=== PATIENT | male | born 1985 | race African-American/Black ===

== ENCOUNTER 2016-08-22 12:55 | Emergency (ER) | payer OTHER ==
[~2016-08-22] VITALS: Ht 182.9 cm; Wt 79.4 kg
[~2016-08-22 12:55] MED LIST: AMOXICILLIN 50500 M1 PO; AZITHROMYCIN 2250 MG PO; COUMADIN 2.5MG2.5 M1 PO; DILAUDID 2 MG TA2 MG PO; LEVAQUIN 250 M250 MG PO; NOHOMEMEDICATIONS; NORCO 5-325 TA1 EACH PO; OXYCODONE HCL E40 MG PO; OXYCONTIN10 M1 PO; OXYCONTIN60 MG PO; PERCOCET 10-321 EACH PO; PERCOCET 5-3251 EACH PO; PERCOCET 7.5-31 EACH PO; PHENERGAN 25 MG25 M1 PO; ROXICODONE30 M1 PO; TRAZODONE HCL50 MG PO; XANAX1 MG PO
[2016-08-22 14:19] LABS: CALCIUM 8.9 mg/dL (8.5-10.1); CREATININE 0.8 mg/dL (0.7-1.3); POTASSIUM 4.5 mmol/L (3.5-5.1)
[2016-08-22 14:24] LABS: ALBUMIN 3.8 g/dL (3.4-5.0); TOTAL BILIRUBIN 0.8 mg/dL (<0.1-1.0); TOTAL PROTEIN 7.9 g/dL (6.4-8.2)
[2016-08-22 14:31] LABS: ABSOLUTE NEUTROPHILS 5.7 thou/uL (1.4-8.2); BASOPHILS 0.4 % (0.0-2.0); EOSINOPHILS 0.7 % (0.0-3.0); HEMATOCRIT 33.1 % (42.0-52.0); HEMOGLOBIN 11.5 gm/dL (14.0-18.0); LYMPHOCYTES 22.4 % (24.0-44.0); MCH 34.7 pg (26.0-34.0); MCHC 34.8 g/dL (28.0-37.0); MCV 99.8 fL (80.0-100.0); MONOCYTES 7.9 % (1.0-8.0); OBSERVED RETIC COUNT 5.72 % (0.6-2.6); PLATELET COUNT 415 thou/uL (150-400); POLYS 68.6 % (36.0-66.0); RBC 3.32 mil/uL (4.50-6.00); RDW 14.9 % (10.5-14.5); WBC 8.3 thou/uL (4.0-11.0)
[2016-08-22 14:32] LABS: MANUAL DIFF NO
[2016-08-22 14:41] LABS: INR 1.2; PROTIME 12.2 Seconds (9.3-11.4)
[2016-08-22] MEDS ORDERED: NORCO 5-325 TA1 EACH PO (15:03)
[2016-08-23] MEDS ORDERED: BENADRYL25 MG PO (19:23)
== END 2016-08-22 15:17 | disposition home or self-care (01) ==
LOC: ER 12:55
PROVIDERS: Physician Assistant
DX: D57.00 Hb-SS disease with crisis, unspecified (principal); Z86.711 Personal history of pulmonary embolism; F41.9 Anxiety disorder, unspecified; F17.210 Nicotine dependence, cigarettes, uncomplicated; F12.10 Cannabis abuse, uncomplicated

== ENCOUNTER 2016-08-23 08:36 | Inpatient (IN) | payer OTHER ==
[~2016-08-23] VITALS: Ht 182.9 cm; Wt 68.0 kg
--- NOTE | ~2016-08-23 | O ---
[facility] [place] [address] OPERATIVE REPORT Name: MELANIE STALLWROTH Room #: 417-I DIS IN M.R.#: [id number] Admission: 08/23/16 Attend Phys: Ihsan Lawton Discharge: 08/29/16 Date of : 87 Report #: [id number] THIS REPORT FOR: //name// CC: Ihsan Lemos DATE OF SERVICE: 08/27/2016 PREOPERATIVE DIAGNOSIS: Bilateral upper arm fluid collections. POSTOPERATIVE DIAGNOSIS: Bilateral upper arm abscesses. SURGEON: Tanvir Austin MD. FREIGHT BRAKEMAN: None. PROCEDURE: Incision and drainage of bilateral upper arm abscesses. ANESTHESIA: General anesthetic and local anesthesia. ESTIMATED BLOOD LOSS: 10 mL. SPECIMENS TO PATHOLOGY: Cultures including aerobic, anaerobic, AFB, and fungal from each site, five separate areas of abscess were incised and drained. Each of these were packed with 0.25% Dakin's soaked strip gauze. After hemostasis had been obtained at each site and after each site had been irrigated with copious sterile saline. DESCRIPTION OF PROCEDURE: After written and informed consent was obtained, the patient was brought to the operating room and placed in the supine position. A timeout was taken to verify the patient's identity and to plan the procedure. SCDs were in place in the lower extremities bilaterally. Preoperative antibiotics had been administered. Anesthesia was induced. LMA was placed. Bilateral upper arms were sterilely prepped and draped in the standard fashion. The right upper arm site was addressed first. This measured 5 cm x 3 cm. Local anesthetic was infiltrated in a field block pattern. Incision was made with a #10 blade and carried through the skin and subcutaneous tissue. Purulence was encountered. This was off-white in coloration. Culture was obtained and passed off. The wound was then explored digitally and with Yasmin clamp and was then irrigated with copious sterile saline and suctioned clear. Hemostasis was obtained with electrocautery and with direct pressure. The wound was then packed with 0.25% Dakin-soaked strip gauze. Right upper arm middle abscess was then addressed in the same fashion. This measured 2 cm x 2 cm. Off-white purulence was produced evacuated and cultured. The wound was irrigated out in the same fashion. Hemostasis was obtained using [facility] [address] [place] [address] OPERATIVE REPORT Name: MELANIE STALLWORTH Room #: 417-I [facility] IN ..#: [id number] Admission: 08/23/16 Attend Phys: Ihsan Lawton Discharge: 08/29/16 Date of : 87 Report #: [id number] electrocautery. Wound was similarly packed with 0.25% Dakin-soaked strip gauze. Right upper arm inferior abscess was addressed in the same fashion. This was measured at 3 cm x 3 cm, similar off-white purulence was produced evacuated and cultured. Irrigation was performed. Hemostasis was obtained with electrocautery. Wound was also packed with 0.25% Dakin-soaked strip gauze. Left upper arm superior abscess was then addressed. This measured 5 cm x 4 cm. This showed off-white purulence as well, which was evaluated and cultured. Hemostasis was obtained with electrocautery. Wound was packed with Dakin-soaked strip gauze. Left upper arm inferior abscess was addressed in the similar fashion. This measured 5 cm x 4 cm. Off-white purulence was produced, evacuated and cultured. Wound was irrigated with copious sterile saline and suctioned clear. Electrocautery was utilized for hemostasis. Wound was packed with 0.25% Dakin-soaked strip gauze. Sterile dressings were applied over each of these five sites of incision and drainage, and at this point, the case was ended. All instrumentation had been extracted and accounted for. All counts were correct per nursing report. The cultures had all been labeled appropriately, and were passed off again for aerobic, anaerobic, AFB, and fungal cultures. The patient was awakened and taken to the postoperative care unit in stable condition. <ELECTRONICALLY SIGNED> By: Tanvir Austin MD 09/06/16 1506 0924 1218 Tanvir Austin MD /nt
--- NOTE | ~2016-08-23 | 2DMMODE ---
[facility] [address] [place] [address] 2 D/M-MODE ECHOCARDIOGRAM Name: FEDERICAMELANIE Room #: 417-I ADM IN M.R.#: [id number] Admission: 08/23/16 Attend Phys: Ihsan Noland Discharge: Date of : 87 Date of Service: 08/26/16 1231 Report #: [id number] THIS REPORT FOR: //name// APPROVED REPORT Study performed: 08/26/2016 10:08:18 EXAM: Comprehensive 2D, Doppler, and color-flow Echocardiogram Patient Location: Echo lab Room #: [facility] Status: routine Other Information Study Quality: Good Indications Rule out vegetations. 2D Dimensions RVDd: 28.90 mm LVEF(%): 60.32 (>50%) IVSd: 8.89 (7-11mm) LVOT Diam: 23.45 (18-24mm) LVDd: 48.71 mm PWd: 10.75 (7-11mm) Ascending Ao: 26.10 (22-36mm) LVDs: 33.00 (25-40mm) Aortic Root: 31.63 mm Salguero's LVEF: 60.32 % Volumes Left Atrial Volume (Systole) Single Plane 4CH: 37.76 mL Single Plane 2CH: 56.43 mL LA ESV Index: 27.00 mL/m2 Aortic Valve AoV Peak Eric.: 1.26 m/s AO Peak Gr.: 6.31 mmHg LVOT Max P.99 mmHg LVOT Max V: 1.00 m/s SILVIO Vmax: 3.43 cm2 Mitral Valve E/A Ratio: 1.7 MV Decel. Time: 195.03 ms MV E Max Eric.: 0.99 m/s MV A Eric.: 0.59 m/s MV PHT: 56.56 ms IVRT: 55.36 ms [facility] [place] [address] 2 D/M-MODE ECHOCARDIOGRAM Name: MELANIE STALLWORTH EMILY Room #: 417-I [facility] IN .R.#: [id number] Admission: 08/23/16 Attend Phys: Ihsan Noland Discharge: Date of : 87 Date of Service: 08/26/16 1231 Report #: [id number] Pulmonary Valve PV Peak Eric.: 1.29 m/s PV Peak Gr.: 6.70 mmHg Pulmonary Vein P Vein S: 0.46 m/s P Vein D: 0.63 m/s P Vein S/D Ratio: 0.73 Tricuspid Valve TR Peak Eric.: 1.76 m/s RAP Estimate: 5.00 mmHg TR Peak Gr.: 12.34 mmHg RVSP: 17.00 mmHg Left Ventricle The left ventricle is normal size. There is normal LV segmental wall motion. There is normal left ventricular wall thickness. Left ventricular systolic function is normal. LVEF is 60%. The left ventricular diastolic function is normal. Right Ventricle The right ventricle is normal size. The right ventricular systolic function is normal. Atria The left atrium size is normal. The right atrium size is normal. Aortic Valve The aortic valve is normal in structure. No aortic regurgitation is present. There is no aortic valvular stenosis. Mitral Valve The mitral valve is normal in structure. There is no mitral valve regurgitation noted. No evidence of mitral valve stenosis. Tricuspid Valve The tricuspid valve is normal in structure. There is trace tricuspid regurgitation. The right atrial pressure is estimated at 5 mmHg. Estimated PAP is 17mmHg. Pulmonic Valve The pulmonary valve is normal in structure. Trace pulmonic regurgitation. Great Vessels The aortic root is normal in size. The ascending aorta is normal in [address] [address] 2 D/M-MODE ECHOCARDIOGRAM Name: MELANIE STALLWORTH Room #: 417-I [facility] IN [facility]#: [id number] Admission: 08/23/16 Attend Phys: Ihsan Noland Discharge: Date of : 87 Date of Service: 08/26/16 1231 Report #: [id number] size. IVC is normal in size and collapses >50% with inspiration. Pericardium There is no pericardial effusion. <Conclusion> Normal echocardiogram with Doppler EF 60% <ELECTRONICALLY SIGNED> By: Dwight Addison MD, [facility] 08/26/16 1231 1231 1231 Dwight Addison MD, [facility] /INF
--- NOTE | ~2016-08-23 | HC ---
[facility] [place] [address] CONSULTATION Name: MELANIE STALLWORTH Room #: 417-I [facility] IN M.R.#: [id number] Admission: 08/23/16 Attend Phys: Ihsan Lawton Discharge: 08/29/16 Date of : 87 Report #: [id number] THIS REPORT FOR: //name// CC: Ihsan Lemos REASON FOR CONSULTATION: I was asked to evaluate concerning bilateral upper arm abscesses. 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 He was treated for possible endocarditis. He completed his course of treatment and had been doing fairly well until the last 48 hours. He has had increased pain and swelling in both upper arms. Found to have bilateral soft tissue abscesses, which were incised and drained. ALLERGIES: None known. MEDICATIONS: As noted on his MAR, now on vancomycin. PAST MEDICAL HISTORY, FAMILY HISTORY, AND SOCIAL HISTORY: Unchanged from his previous consultations and H and P. REVIEW OF SYSTEMS: No cough, sputum, nausea, vomiting or diarrhea. His pain has been under better control. It is noted that he was found with narcotics and Benadryl on his bedside table and nursing also found syringes. Had oxycodone, Dilaudid Benadryl. PHYSICAL EXAMINATION: VITAL SIGNS: Afebrile and hemodynamically stable. GENERAL: He is alert, cooperative and pleasant, in no acute distress. Upper arm abscesses had packing in them. No axillary adenopathy. CHEST: Clear. HEART: Regular. ABDOMEN: Soft. EXTREMITIES: He had left IJ catheter in place. LABORATORY STUDIES: Cultures of the abscesses are showing methicillin-susceptible Staph aureus and gram-negative rods. White count 10.8, hemoglobin 9.5. HIV antibody negative. Blood cultures negative. IMPRESSION: Soft tissue abscesses, polymicrobial both upper arms. I suspect the patient is injecting as cause of these. He, however, denied it. [facility] [address] [place] [address] CONSULTATION Name: MELANIE STALLWORTH Room #: 417-I [facility] IN .R.#: [id number] Admission: 08/23/16 Attend Phys: Ihsan Lawton Discharge: 08/29/16 Date of : 87 Report #: [id number] PLAN: Would recommend continuing IV antibiotic therapy until culture results are back. He will be monitored by nursing staff. <ELECTRONICALLY SIGNED> By: Brain Monroy MD 08/29/16 1112 1201 0204 Brain Monroy MD /nt
--- NOTE | ~2016-08-23 | HC ---
[facility] [place] [address] CONSULTATION Name: MELANIE STALLWORTH Room #: 417-I [facility] IN M.R.#: [id number] Admission: 08/23/16 Attend Phys: Ihsan Lawton Discharge: 08/29/16 Date of : 87 Report #: [id number] THIS REPORT FOR: //name// CC: Ihsan Lemos DATE OF SERVICE: 08/26/2016 CHIEF COMPLAINT: Bilateral upper arm swelling. HISTORY OF PRESENT ILLNESS: The patient is a 30-year-old -[place] male patient with history of sickle cell disease with recurrent pain episodes. He has been seen previously at this facility for similar issues. He has history of sickle cell crisis, sickle cell anemia, hip pain and back pain. He also has history of upper arm fluid collections, which have previously been incised and drained, the patient states at an outside facility. At this time, he states that over the past 48 hours, he has had swelling at the areas of his lateral upper arms on both sides. He feels that he may have had mosquito bites or some other source at this location that he scratched. He said that over the past 48 hours, these have become significantly painful and swollen. He has had subjective fevers and actually has had low-grade fevers in the electronic medical record recorded. He initially had a white count of 7.2 and more recently this has been continuously normal at approximately 10,000. The patient was started on empiric vancomycin. General Surgery was consulted for potential intervention. Ultrasound of the upper extremities was performed and was essentially unremarkable. This showed on the right side a 2.7 x 1 cm heterogeneously hypoechoic focus in the soft tissue of the upper extremity as well as another 1.5 x 0.7 cm nodule on the left side. There is a 3.1 x 1.2 cm region as well as a 2.1 x 1.4 cm region, also hypoechoic in nature consistent with edema. The radiologic read is that there is no obvious drainable abscess. PAST MEDICAL HISTORY: As described above. PAST SURGICAL HISTORY: Multiple procedures for vascular access. The patient has had a Port-A-Cath in place that later was removed for endocarditis treated with extensive antibiotic therapy. He had been at [facility] in the past. He had previously been treated for mycobacterial infection. SOCIAL HISTORY: The patient lives with his mother. He does smoke regularly, negative for ETOH or illicit drug use. ALLERGIES: No known drug allergies. MEDICATIONS: Include OxyContin, Coumadin, Desyrel, Xanax and Dilaudid. [address] [address] CONSULTATION Name: MELANIE STALLWORTH Room #: 417-I DIS IN ..#: [id number] Admission: 08/23/16 Attend Phys: Ihsan Lawton Discharge: 08/29/16 Date of : 87 Report #: [id number] FAMILY HISTORY: Daughter has sickle cell trait. REVIEW OF SYSTEMS: Otherwise, negative except for that mentioned in the HPI. PHYSICAL EXAMINATION: GENERAL: The patient is awake, alert and oriented. He is in no acute distress. He is afebrile and nontoxic. He does give appropriate history. HEENT: Head is atraumatic and normocephalic. No icterus is appreciated. Cranial nerves are intact. There is a newly placed left IJ line in place, which is clean, dry and intact. NECK: Supple, no jugular venous distention. LUNGS: Clear to auscultation. HEART: Regular without murmur. ABDOMEN: Soft, nondistended, nontender to palpation. EXTREMITIES: Are examined. In the lateral aspect of the left upper arm and right upper arm, there are at least two large 2-3 cm fluctuant regions, which are exquisitely tender to palpation. These are more fluctuant. On examination, they would not have been expected based upon the ultrasound reading. It is possible that these have progressed since completion of the radiographic study. The patient does move all extremities without focal deficit. No clubbing or cyanosis appreciated. IMPRESSION AND PLAN: 1. 30-year-old male patient with sickle cell anemia and history of multiple admissions for sickle cell crisis as well as previous mycobacterial infection and previous endocarditis. Despite the unremarkable radiographic reading of the ultrasounds, his examination is consistent with fluid collections, which are exquisitely tender to palpation with warmth on examination. The patient is nontoxic and afebrile. The patient does relate that on prior occasions when these fluid collections were drained, he had significant relief from his pain. We will therefore plan for incision and drainage of these upper arm fluid collections in the operating room with wound cultures to be obtained at that time. Consultation very much appreciated. Will continue to follow clinically. <ELECTRONICALLY SIGNED> By: Tanvir Austin MD 08/30/16 0917 0756 1334 Tanvir Austin MD /nt
[2016-08-23 08:37] VITALS: BP 119/79
[2016-08-23 10:17] LABS: ABSOLUTE RETIC COUNT 0.1881 10^6/uL; HEMATOCRIT 30.9 % (42.0-52.0); MCH 35.1 pg (26.0-34.0); MCHC 35.6 g/dL (28.0-37.0); MCV 98.8 fL (80.0-100.0); OBSERVED RETIC COUNT 6.01 % (0.6-2.6); RBC 3.13 mil/uL (4.50-6.00); RDW 15.6 % (10.5-14.5); WBC 7.2 thou/uL (4.0-11.0)
[2016-08-23 10:22] LABS: CALCIUM 8.7 mg/dL (8.5-10.1); CREATININE 1.1 mg/dL (0.7-1.3); POTASSIUM 3.9 mmol/L (3.5-5.1)
[2016-08-23 11:46] VITALS: BP 113/71
[2016-08-23 12:36] VITALS: BP 113/62
[2016-08-23 16:11] VITALS: BP 103/66
[2016-08-23] MEDS ORDERED: BENADRYL25 MG PO (19:23)
[2016-08-23 19:55] VITALS: BP 108/66
[2016-08-24 00:45] VITALS: BP 107/58
[2016-08-24 06:03] VITALS: BP 110/52
[2016-08-24 07:20] LABS: HEMOGLOBIN 10.8 gm/dL (14.0-18.0); MCH 35.2 pg (26.0-34.0); MCHC 34.8 g/dL (28.0-37.0); MCV 101.1 fL (80.0-100.0); RBC 3.07 mil/uL (4.50-6.00)
[2016-08-24 07:51] LABS: INR 4.9
[2016-08-24 07:52] LABS: PROTIME 50.9 Seconds (9.3-11.4)
[2016-08-24 08:40] VITALS: BP 102/60
[2016-08-24 16:17] VITALS: BP 106/65
[2016-08-24 19:15] VITALS: BP 110/68
[2016-08-25 03:18] VITALS: BP 113/60
[2016-08-25 06:29] LABS: PROTIME 13.2 Seconds (9.3-11.4)
[2016-08-25 06:36] LABS: INR 1.3
[2016-08-25 08:06] VITALS: BP 100/58
[2016-08-25 16:24] VITALS: BP 100/61
[2016-08-25 20:00] VITALS: BP 107/62
[2016-08-26 04:18] VITALS: BP 113/73
[2016-08-26 04:18] LABS: INR 1.2
[2016-08-26 04:37] LABS: HEMATOCRIT 31.8 % (42.0-52.0); MCH 34.9 pg (26.0-34.0); MCHC 34.6 g/dL (28.0-37.0); RBC 3.15 mil/uL (4.50-6.00); RDW 14.5 % (10.5-14.5); WBC 9.7 thou/uL (4.0-11.0)
[2016-08-26 07:18] VITALS: BP 106/57
[2016-08-26 15:15] VITALS: BP 134/51
[2016-08-26 20:00] VITALS: BP 118/60
[2016-08-27 04:53] VITALS: BP 147/70
[2016-08-27 05:55] LABS: HEMATOCRIT 26.8 % (42.0-52.0); HEMOGLOBIN 9.3 gm/dL (14.0-18.0); MCH 34.5 pg (26.0-34.0); MCHC 34.7 g/dL (28.0-37.0); MCV 99.5 fL (80.0-100.0); PLATELET COUNT 284 thou/uL (150-400); RBC 2.69 mil/uL (4.50-6.00); RDW 14.7 % (10.5-14.5); WBC 10.7 thou/uL (4.0-11.0)
[2016-08-27 05:58] LABS: MANUAL DIFF YES
[2016-08-27 06:06] LABS: INR 1.1; PROTIME 11.4 Seconds (9.3-11.4)
[2016-08-27 06:07] LABS: ALBUMIN 3.1 g/dL (3.4-5.0); CALCIUM 8.3 mg/dL (8.5-10.1); PHOSPHORUS 4.3 mg/dL (2.5-4.9); POTASSIUM 4.2 mmol/L (3.5-5.1)
[2016-08-27 07:01] VITALS: BP 128/87
[2016-08-27 07:18] LABS: ABSOLUTE NEUTROPHILS 6.8 thou/uL (1.4-8.2); PLATELET ESTIMATE NORMAL; POIKILOCYTOSIS 2+; TOTAL CELL COUNT 100
[2016-08-27 07:19] LABS: OVALOCYTES 1+; POLYCHROMASIA SLIGHT; TARGET CELLS 1+
[2016-08-27 12:32] VITALS: BP 128/83
[2016-08-27 15:29] VITALS: BP 141/89
[2016-08-27 19:20] VITALS: BP 127/85
[2016-08-27 23:14] LABS: HIV ANTIBODY Non Reactive (Non Reactive)
[2016-08-28 03:22] VITALS: BP 143/82
[2016-08-28 04:42] LABS: HEMATOCRIT 27.3 % (42.0-52.0); HEMOGLOBIN 9.5 gm/dL (14.0-18.0); MCH 34.5 pg (26.0-34.0); MCHC 34.8 g/dL (28.0-37.0); MCV 99.3 fL (80.0-100.0); RBC 2.75 mil/uL (4.50-6.00); WBC 10.8 thou/uL (4.0-11.0)
[2016-08-28 04:49] LABS: INR 1.1; PROTIME 11.9 Seconds (9.3-11.4)
[2016-08-28 07:17] VITALS: BP 114/74
[2016-08-28 16:01] VITALS: BP 120/78
[2016-08-28 20:00] VITALS: BP 106/68
== END 2016-08-29 04:00 | disposition left against medical advice (07) | DRG 579 ==
LOC: ER 08:36 → 4E 10:26 → EROBS 10:26 → 4E 11:47
PROVIDERS: Hospitalist; Otolaryngology; Physician Assistant
PROC: 02HV33Z Insertion of Infusion Device into Superior Vena Cava, Percutaneous Approach (ICD-10-PCS; principal; 2016-08-26)
PROC: B5181ZA Fluoroscopy of Superior Vena Cava using Low Osmolar Contrast, Guidance (ICD-10-PCS; 2016-08-26)
PROC: B548ZZA Ultrasonography of Superior Vena Cava, Guidance (ICD-10-PCS; 2016-08-26)
PROC: 0J9F0ZZ Drainage of Left Upper Arm Subcutaneous Tissue and Fascia, Open Approach (ICD-10-PCS; 2016-08-27)
PROC: 0J9D0ZZ Drainage of Right Upper Arm Subcutaneous Tissue and Fascia, Open Approach (ICD-10-PCS; 2016-08-27)
DX: L02.414 Cutaneous abscess of left upper limb (principal); D57.00 Hb-SS disease with crisis, unspecified; M87.9 Osteonecrosis, unspecified; D68.9 Coagulation defect, unspecified; B48.8 Other specified mycoses; L02.413 Cutaneous abscess of right upper limb; F41.9 Anxiety disorder, unspecified; D64.9 Anemia, unspecified; F17.290 Nicotine dependence, other tobacco product, uncomplicated; T45.515A Adverse effect of anticoagulants, initial encounter; Z53.21 Procedure and treatment not carried out due to patient leaving prior to being seen by health care provider; E66.9 Obesity, unspecified; F32.9 Major depressive disorder, single episode, unspecified; Y92.89 Other specified places as the place of occurrence of the external cause; Z84.89 Family history of other specified conditions; Z86.711 Personal history of pulmonary embolism; Z79.899 Other long term (current) drug therapy; Z68.30 Body mass index [BMI] 30.0-30.9, adult
CPT/HCPCS: 10183; 50010; 50101; 50386; 62110; 62900; 70005

== ENCOUNTER 2016-09-20 23:58 | Inpatient (IN) | payer OTHER ==
[~2016-09-20] VITALS: Ht 182.9 cm; Wt 68.0 kg
[2016-09-20 23:58] VITALS: BP 126/78
[~2016-09-20 23:58] MED LIST changes: +BENADRYL25 MG PO
[2016-09-21 07:35] VITALS: BP 122/72
== END 2016-09-21 08:32 | disposition left against medical advice (07) | DRG 812 ==
LOC: ER 23:58 → EROBS 09-21 06:21 → 3N 09-21 07:36
DX: D57.00 Hb-SS disease with crisis, unspecified (principal); M87.059 Idiopathic aseptic necrosis of unspecified femur; I38 Endocarditis, valve unspecified; F41.9 Anxiety disorder, unspecified; G89.29 Other chronic pain; Z53.21 Procedure and treatment not carried out due to patient leaving prior to being seen by health care provider; F12.90 Cannabis use, unspecified, uncomplicated; F17.210 Nicotine dependence, cigarettes, uncomplicated; E86.0 Dehydration; Z86.711 Personal history of pulmonary embolism
CPT/HCPCS: 10094

== ENCOUNTER 2017-01-03 09:56 | Emergency (ER) | payer OTHER ==
[~2017-01-03] VITALS: Ht 182.9 cm; Wt 68.0 kg
[2017-01-03] MEDS ORDERED: IBUPROFEN 600600 M1 PO (12:15)
== END 2017-01-03 12:51 | disposition home or self-care (01) ==
LOC: ER 09:56
DX: D57.00 Hb-SS disease with crisis, unspecified (principal); F41.9 Anxiety disorder, unspecified; F17.210 Nicotine dependence, cigarettes, uncomplicated

== ENCOUNTER 2017-01-06 23:45 | Emergency (ER) | payer OTHER ==
[~2017-01-06] VITALS: Ht 182.9 cm; Wt 68.0 kg
[~2017-01-06 23:45] MED LIST changes: +IBUPROFEN 600600 M1 PO
[2017-01-07 01:20] LABS: ABSOLUTE RETIC COUNT 0.1128 10^6/uL; OBSERVED RETIC COUNT 3.77 % (0.6-2.6)
[2017-01-07 01:21] LABS: HEMATOCRIT 31.3 % (42.0-52.0); HEMOGLOBIN 10.8 gm/dL (14.0-18.0); MCH 36.3 pg (26.0-34.0); MCHC 34.6 % (28.0-37.0); MCV 104.7 fL (80.0-100.0); RBC 2.99 mil/uL (4.50-6.00)
[2017-01-07 01:33] LABS: CALCIUM 8.7 mg/dL (8.5-10.1); POTASSIUM 3.7 mmol/L (3.5-5.1)
== END 2017-01-07 01:57 | disposition home or self-care (01) ==
LOC: ER 23:45
PROVIDERS: Emergency Medicine
DX: D57.00 Hb-SS disease with crisis, unspecified (principal); F41.9 Anxiety disorder, unspecified; G89.29 Other chronic pain; I49.9 Cardiac arrhythmia, unspecified; F12.10 Cannabis abuse, uncomplicated; F17.210 Nicotine dependence, cigarettes, uncomplicated

== ENCOUNTER 2020-03-17 11:37 | Emergency (ER) | payer OTHER ==
[~2020-03-17] VITALS: Ht 185.4 cm; Wt 70.3 kg
[2020-03-17 15:21] LABS: ABSOLUTE RETIC COUNT 0.2695 10^6/uL; HEMATOCRIT 33.5 % (42.0-52.0); HEMOGLOBIN 11.6 gm/dL (14.0-18.0); MCH 36.1 pg (26.0-34.0); MCHC 34.5 g/dL (28.0-37.0); MCV 104.8 fL (80.0-100.0); OBSERVED RETIC COUNT 8.43 % (0.6-2.6); PLATELET COUNT 328 thou/uL (150-400); RDW 15.9 % (10.5-14.5); WBC 10.9 thou/uL (4.0-11.0)
[2020-03-17 15:26] LABS: CALCIUM 8.8 mg/dL (8.5-10.1); CREATININE 0.8 mg/dL (0.7-1.3); POTASSIUM 4.7 mmol/L (3.5-5.1)
[2020-03-17 15:32] LABS: ALBUMIN 3.6 g/dL (3.4-5.0); TOTAL BILIRUBIN 1.1 mg/dL (0.2-1.0); TOTAL PROTEIN 6.9 g/dL (6.4-8.2)
[2020-03-17 15:56] LABS: NUCLEATED RBCS 1 /100WBC
[2020-03-17 15:57] LABS: POLYCHROMASIA SLIGHT; TARGET CELLS 1+
[2020-03-17 15:58] LABS: ANISOCYTOSIS 1+; MACROCYTES 1+
[2020-03-17] MEDS ORDERED: NORCO 5-325 TA1 EAC2 PO (16:05)
[2020-03-17 16:15] VITALS: BP 106/62
== END 2020-03-17 16:15 | disposition home or self-care (01) ==
LOC: ER 11:37
PROVIDERS: Emergency Medicine
DX: D57.00 Hb-SS disease with crisis, unspecified (principal); M25.552 Pain in left hip; M79.605 Pain in left leg; F41.9 Anxiety disorder, unspecified; F17.210 Nicotine dependence, cigarettes, uncomplicated; Z86.711 Personal history of pulmonary embolism